=== PATIENT | male | born 1955 | race Caucasian/White ===

== ENCOUNTER 2023-03-31 17:53 | Emergency (ER) | payer BC ==
[~2023-03-31] VITALS: Ht 165.1 cm; Wt 96.2 kg
[2023-03-31 18:49] VITALS: BP_SYST 149; PULSE 95; RESP 21; TEMP 98.7; O2SAT 99
[2023-03-31 21:48] LABS: HEMOGLOBIN 10.6 g/dL (14.0-18.0); MEAN CORPUSCULAR HEMOGLOBIN 29 pg (27-31); MEAN CORPUSCULAR HGB CONC 34 % (32-36); MEAN CORPUSCULAR VOLUME 85 fL (79.0-98.0); PLATELET COUNT (AUTO) 177 K/uL (130-430); RED BLOOD CELL COUNT(AUTO) 3.66 MIL/uL (4.2-6.2); RED CELL DISTRIBUTION WIDTH 13.3 % (9.0-15.0); WHITE BLOOD COUNT (AUTO) 12.7 K/uL (4.8-10.8)
[2023-03-31 22:02] LABS: BAND % (MANUAL) 6 % (0-6); BASOPHILS % (MANUAL) 0 % (0-2); EOSINOPHILS % (MANUAL) 0 % (0-7); LYMPHOCYTES % (MANUAL) 16 % (20-46); MONOCYTES % (MANUAL) 22 % (0-11)
[2023-03-31 22:09] LABS: ANION GAP 9 (5-15); CALCIUM 9.3 mg/dL (8.4-11.0); CARBON DIOXIDE 27 mmol/L (23-29); CHLORIDE 92 mmol/L (98-107); CREATININE 1.28 mg/dL (0.55-1.30); GFR AFRICAN AMERICAN 72 mL/min (>90); GFR NON AFRICAN-AMERICAN 59 mL/min (>90); GLUCOSE 359 mg/dL (74-106); POTASSIUM 4.5 mmol/L (3.5-5.1); SODIUM SERUM 128 mmol/L (136-145); UREA NITROGEN, BLOOD 18 mg/dL (8-21)
[2023-03-31 22:22] LABS: ALANINE AMINOTRANSFERASE 55 U/L (12-78); ALBUMIN 2.5 g/dL (3.4-4.8); ASPARTATE AMINOTRANSFERASE 46 U/L (10-37); BILIRUBIN,DIRECT 0.3 mg/dL (0.0-0.3); CREATINE KINASE, TOTAL 196 U/L (39-308); FREE T4 (FREE THYROXINE) 1.1 ng/dL (0.6-1.6); THYROID STIMULATING HORMONE 1.16 uIu/mL (0.34-4.82); TOTAL BILIRUBIN 0.8 mg/dL (0.0-1.0)
[2023-03-31 22:25] LABS: PROTHROMBIN TIME 10.8 SECS (9.5-12.5)
[2023-03-31] MEDS ORDERED: NACL 0.9% 1,000 ML IV ONE (23:45)
[2023-04-01 00:15] LABS: BILIRUBIN,URINE NEGATIVE (NEGATIVE); BLOOD, URINE 3+ (NEGATIVE); CLARITY/URINE CLEAR (CLEAR); COLOR,URINE YELLOW (YELLOW); GLUCOSE,URINE 3+ (NEGATIVE); KETONES,URINE 2+ (NEGATIVE); LEUKOCYTE ESTERASE ,URINE NEGATIVE (NEGATIVE); NITRITE, URINE NEGATIVE (NEGATIVE); PROTEIN URINE 2+ (NEGATIVE); UROBILINOGEN,URINE 0.2 (0.2-1.0)
[2023-04-01] MEDS ORDERED: NACL 0.9% 1,000 ML IV ONE (00:45)
[2023-04-01 01:15] LABS: BACTERIA,URINE RARE /HPF (None Seen)
[2023-04-01] MEDS ORDERED: ONDA-8 TL (02:24)
[2023-04-01] MEDS ORDERED: ACET-2634 PO (02:24)
[2023-04-01 03:09] VITALS: BP_SYST 140; PULSE 86; RESP 22; TEMP 98; O2SAT 96
== END 2023-04-01 03:09 | disposition home or self-care (01) ==
LOC: SED 17:53
DX: S09.90XA Unspecified injury of head, initial encounter (principal); E86.0 Dehydration; E11.65 Type 2 diabetes mellitus with hyperglycemia; R73.9 Hyperglycemia, unspecified; I10 Essential (primary) hypertension; Z87.440 Personal history of urinary (tract) infections; Z79.899 Other long term (current) drug therapy; W18.2XXA Fall in (into) shower or empty bathtub, initial encounter; Y93.89 Activity, other specified; Y92.89 Other specified places as the place of occurrence of the external cause; Y99.8 Other external cause status
CPT/HCPCS: 99285; 70450; 71045; 85027; 80076; 80048; 81001; 82550; 84439; 84443; 85007; 85610; 85730; 84484; 36415; 93005; 76376; 83605; 81000; 96360; 96361; 81015; J7030